=== PATIENT | female | born 1940 | race Caucasian/White ===

== ENCOUNTER 2021-02-28 23:13 | Inpatient (IN) | payer OTHER ==
[~2021-02-28] VITALS: Ht 160 cm; Wt 49.9 kg
--- NOTE | ~2021-02-28 | EMS ---
[address] [address] EMS Patient Care Report Name: MARIE DAVILA Room #: 210-P ADM IN M.R.#: [id number] Admission: 03/01/21 Attend Phys: Bryson Zepeda MD Discharge: Date of : 36 Report #: [id number] THIS REPORT FOR: //name// Report Transmitted: 03/02/2021 16:15 EMS Care Summary [place], [place]/[facility] Incident [id number] @ 02/28/2021 22:18 Incident Location [address] [place] [address] Patient MARIE TAN Female, 81 Years 1940 Patient Address [address] [place], [place] [id number] Patient History None Reported, Patient Allergies Sulfa, Patient Medications None Reported, Chief Complaint NAUSEA Disposition Transported No Lights/[place] Dispatch Reason Sick Person Transported To [facility] Narrative M528 ARRIVES TO FIND 81 Y/O F PT COMPLAINING OF NAUSEA, VOMITING, AND ABDOMINAL PAIN WHICH BEGAN SUDDENLY AROUND 9PM. [address] [address] EMS Patient Care Report Name: MARIE DAVILA Room #: 210-P [facility] IN Evelyn#: [id number] Admission: 03/01/21 Attend Phys: Bryson Zepeda MD Discharge: Date of : 36 Report #: [id number] ASSESSMENTS AND TREATMENTS NOTED. PT MOVES TO COT VIA [id number]. PT MOVED TO AMBULANCE. PT TRANSPORTED. M528 ARRIVES AT DESTINATION. PT MOVED TO ROOM IN ED. PT MOVED TO BED IN ROOM VIA DRAWSHEET METHOD. PT CARE TRANSFERRED. M528 RETURNS TO SERVICE. Initial Vitals @22:36P: 82,BP: 142/84, @22:51P: 79,R: 18,BP: 140/81,Pain: 5/10,GCS: 15,Glucose: 125,CO: 2,SpO2: 98,Revised Trauma: 12, Assessments @22:36MENTAL:Event Oriented,Time Oriented,Place Oriented,Person Oriented,SKIN:HEENT:LUNG SOUNDS:Right Upper: Tenderness,Left Upper: Tenderness,Left Lower: Tenderness,Right Lower: Tenderness,General: Nausea,ABDOMEN:Right Upper: Tenderness,Left Upper: Tenderness,Left Lower: Tenderness,Right Lower: Tenderness,General: Nausea,PELVIS//GI:EXTREMITIES:PULSE:NEURO:@23:06MENTAL:No Abnormalities,SKIN:No Abnormalities,HEENT:Head/Face: No Abnormalities,Eyes: No Abnormalities,Neck/Airway: No Abnormalities,LUNG SOUNDS:Right Lower: Tenderness,Left Lower: Tenderness,Right Upper: Tenderness,Left Upper: Tenderness,General: Nausea,ABDOMEN:Right Lower: Tenderness,Left Lower: Tenderness,Right Upper: Tenderness,Left Upper: Tenderness,General: Nausea,PELVIS//GI:No Abnormalities,EXTREMITIES:Left Arm: No Abnormalities,Right Arm: No Abnormalities,Left Leg: No Abnormalities,Right Leg: No Abnormalities,PULSE:NEURO:No Abnormalities, Impression Nausea Procedures @22:36ALS AssessmentResponse: UnchangedSucceeded@22:51Saline Lock 0cc (20 ga) Site: Forearm-LeftResponse: UnchangedSucceeded@22:373-Lead ECGResponse: UnchangedSucceeded@22:50Saline Lock 0cc (20 ga) Site: Antecubital-LeftResponse: UnchangedFailed Timeline 22:16,Call Received 22:16,Dispatch Notified 22:18,Dispatched 22:19,En Route 22:32,On Scene 22:35,At Patient 22:36,ALS Assessment,Response: UnchangedSucceeded, 22:36,BP: 142/84 M,PULSE: 82,RR: R,SPO2: Ox,ETCO2: ,BG: ,PAIN: ,GCS: , 22:37,3-Lead ECG,Response: UnchangedSucceeded, 22:50,Saline Lock 0cc 20 ga Site: Antecubital-Left,Response: UnchangedFailed, [address] [address] EMS Patient Care Report Name: MARIE DAVILA Room #: 210-P [facility] IN .R.#: [id number] Admission: 03/01/21 Attend Phys: Bryson Zepeda MD Discharge: Date of : 36 Report #: [id number] 22:51,Saline Lock 0cc 20 ga Site: Forearm-Left,Response: UnchangedSucceeded, 22:51,BP: 140/81 M,PULSE: 79,RR: 18 R,SPO2: 98 Ox,ETCO2: ,B,PAIN: 5,GCS: 15, 22:59,Depart Scene 23:09,At Destination 23:23,Call Closed Disclaimer v1.1 Copyright 2020 [employer] This EMS Care Summary contains data elements from the applicable legal record (which may be displayed differently). It is designed to provide pertinent information for the following purposes: continuity of care, clinical quality, and state data reporting. The complete legal record is available to ED staff and administrators of the receiving hospital in [employer] Patient Tracker. All data is provided "as is."
--- NOTE | ~2021-02-28 | EMS ---
[address] [address] EMS Patient Care Report Name: MARIE JACKSON Room #: REG MATT [place]#: [id number] Admission: 02/28/21 Attend Phys: Discharge: Date of : 36 Report #: [id number] THIS REPORT FOR: //name// Report Transmitted: 02/28/2021 23:11 EMS Care Summary [place], [place]/[facility] Incident [id number] @ 02/28/2021 22:18 Incident Location [address] [place], [place] [phone] Patient MARIE TAN Female, 81 Years 1940 Patient Address [address] [place], [place] [phone] Patient History None Reported, Patient Allergies Sulfa, Patient Medications None Reported, Chief Complaint NAUSEA Disposition Transported No Lights/[place] Dispatch Reason Sick Person Transported To [facility] Narrative M528 ARRIVES TO FIND 81 Y/O F PT COMPLAINING OF NAUSEA, VOMITING, AND ABDOMINAL PAIN WHICH BEGAN SUDDENLY AROUND 9PM. [address] [address] EMS Patient Care Report Name: MARIE JACKSON Room #: REG [place]#: [id number] Admission: 02/28/21 Attend Phys: Discharge: Date of : 36 Report #: [id number] ASSESSMENTS AND TREATMENTS NOTED. PT MOVES TO COT VIA [id number]. PT MOVED TO AMBULANCE. PT TRANSPORTED. M528 ARRIVES AT DESTINATION. PT MOVED TO ROOM IN ED. PT MOVED TO BED IN ROOM VIA DRAWSHEET METHOD. PT CARE TRANSFERRED. M528 RETURNS TO SERVICE. Initial Vitals @22:36P: 82,BP: 142/84, @22:51P: 79,R: 18,BP: 140/81,Pain: 5/10,GCS: 15,Glucose: 125,CO: 2,SpO2: 98,Revised Trauma: 12, Assessments @22:36MENTAL:Person Oriented,Place Oriented,Time Oriented,Event Oriented,SKIN:HEENT:LUNG SOUNDS:General: Nausea,Right Lower: Tenderness,Left Lower: Tenderness,Right Upper: Tenderness,Left Upper: Tenderness,ABDOMEN:General: Nausea,Right Lower: Tenderness,Left Lower: Tenderness,Right Upper: Tenderness,Left Upper: Tenderness,PELVIS//GI:EXTREMITIES:PULSE:NEURO:@23:06MENTAL:No Abnormalities,SKIN:No Abnormalities,HEENT:Head/Face: No Abnormalities,Eyes: No Abnormalities,Neck/Airway: No Abnormalities,LUNG SOUNDS:General: Nausea,Left Upper: Tenderness,Right Upper: Tenderness,Left Lower: Tenderness,Right Lower: Tenderness,ABDOMEN:General: Nausea,Left Upper: Tenderness,Right Upper: Tenderness,Left Lower: Tenderness,Right Lower: Tenderness,PELVIS//GI:No Abnormalities,EXTREMITIES:Left Arm: No Abnormalities,Right Arm: No Abnormalities,Left Leg: No Abnormalities,Right Leg: No Abnormalities,PULSE:NEURO:No Abnormalities, Impression Nausea Procedures @22:36ALS AssessmentResponse: UnchangedSucceeded@22:51Saline Lock 0cc (20 ga) Site: Forearm-LeftResponse: UnchangedSucceeded@22:373-Lead ECGResponse: UnchangedSucceeded@22:50Saline Lock 0cc (20 ga) Site: Antecubital-LeftResponse: UnchangedFailed Timeline 22:16,Call Received 22:16,Dispatch Notified 22:18,Dispatched 22:19,En Route 22:32,On Scene 22:35,At Patient 22:36,ALS Assessment,Response: UnchangedSucceeded, 22:36,BP: 142/84 M,PULSE: 82,RR: R,SPO2: Ox,ETCO2: ,BG: ,PAIN: ,GCS: , 22:37,3-Lead ECG,Response: UnchangedSucceeded, 22:50,Saline Lock 0cc 20 ga Site: Antecubital-Left,Response: UnchangedFailed, [address] [address] EMS Patient Care Report Name: RYLEYLizeth DAVILAMARIE Room #: REG [place].#: [id number] Admission: 02/28/21 Attend Phys: Discharge: Date of : 36 Report #: [id number] 22:51,Saline Lock 0cc 20 ga Site: Forearm-Left,Response: UnchangedSucceeded, 22:51,BP: 140/81 M,PULSE: 79,RR: 18 R,SPO2: 98 Ox,ETCO2: ,B,PAIN: 5,GCS: 15, 22:59,Depart Scene 23:09,At Destination 23:23,Call Closed Disclaimer v1.1 Copyright 2020 [employer] This EMS Care Summary contains data elements from the applicable legal record (which may be displayed differently). It is designed to provide pertinent information for the following purposes: continuity of care, clinical quality, and state data reporting. The complete legal record is available to ED staff and administrators of the receiving hospital in [employer] Patient Tracker. All data is provided "as is."
[2021-02-28 23:14] VITALS: BP 171/78
[2021-02-28 23:47] LABS: ABSOLUTE NEUTROPHILS 16.2 thou/uL (1.4-8.2); BASOPHILS 0.3 % (0.0-2.0); EOSINOPHILS 0.5 % (0.0-3.0); HEMATOCRIT 37.3 % (37.0-47.0); HEMOGLOBIN 12.9 gm/dL (12.0-15.0); LYMPHOCYTES 2.5 % (24.0-44.0); MCH 31.7 pg (26.0-34.0); MCHC 34.5 g/dL (28.0-37.0); MCV 91.9 fL (80.0-100.0); MONOCYTES 4.5 % (1.0-8.0); PLATELET COUNT 358 thou/uL (150-400); POLYS 92.2 % (36.0-66.0); RBC 4.05 mil/uL (4.20-5.00); RDW 13.5 % (10.5-14.5); WBC 17.5 thou/uL (4.0-11.0)
[2021-03-01] LABS: ALBUMIN 1.6 g/dL (3.4-5.0); ANION GAP 11 mmol/L (7-16); BUN 8 mg/dL (7-18); CHLORIDE 117 mmol/L (98-107); CO2 16 mmol/L (21-32); CREATININE 0.1 mg/dL (0.6-1.0); GLUCOSE 75 mg/dL (74-106); LIPASE 41 U/L (73-393); SGOT 13 U/L (15-37); SGPT 9 U/L (30-65); SODIUM 144 mmol/L (136-145); TOTAL BILIRUBIN 0.2 mg/dL (0.2-1.0); TOTAL PROTEIN 3.3 g/dL (6.4-8.2)
[2021-03-01 00:02] LABS: POTASSIUM 2.3 mmol/L (3.5-5.1)
[2021-03-01 00:03] LABS: CALCIUM < 5.0 mg/dL (8.5-10.1)
[2021-03-01 01:33] LABS: URINE BILIRUBIN NEGATIVE (Negative); URINE BLOOD NEGATIVE (Negative); URINE CLARITY CLEAR; URINE COLOR YELLOW; URINE GLUCOSE-RANDOM* NEGATIVE (Negative); URINE KETONES NEGATIVE (Negative); URINE NITRITE-REFLEX NEGATIVE (Negative); URINE PROTEIN (DIPSTICK) NEGATIVE (Negative); URINE SPECIFIC GRAVITY 1.015 (1.005-1.035); URINE UROBILINOGEN 0.2 E.U./dl (0.2-1.0)
[2021-03-01 01:43] LABS: URINE LEUKOCYTES-REFLEX 1+ (Negative)
[2021-03-01 01:47] LABS: BACTERIA-REFLEX 1-9 Few /HPF (None Seen); CASTS None Seen /LPF (None Seen); CRYSTALS None Seen /LPF (None Seen); MUCUS 0-3 Light strn/LPF (None Seen); SQUAMOUS 0-3 Few /LPF (0-3); URINE RBC 1-2 Rare /HPF (NONE SEEN); URINE WBC-REFLEX 0-5 Rare /HPF (0-5)
--- NOTE | 2021-03-01 02:19 | NUR ---
Attempted to give report but was told RN busy giving meds and will call back
[2021-03-01 02:36] VITALS: BP 158/81
[2021-03-01 03:46] VITALS: BP 159/92
--- NOTE | 2021-03-01 06:27 | NUR ---
ASSUME CARE [address] ED STAFF. PT STABLE. DENIES ANY PAIN. MODERATE ACTIVITY TOLERANCE. HX OF RIGHT HIP REPLACEMENT X 6WEEKS. PT CONSULTED FOR EVAL AND TX. ASSESSMENT CHARTED. NOTED NAUSEA AND VOMITING. ZOFRAN FOR RELIEF. NO DISTRESS NOTED THROUGH OUT. SR ON MONITOR. PROGRESSING WELL WITH POC. PLAN IS TO CONTINUE TO MONITOR AND REPLACE ELECTROLYTES, MANAGE NAUSEA, VOITING AND DIARRHEA. WILL CONTINUE TO MONITOR AND FOLLOW WITH POC
[2021-03-01 07:09] VITALS: BP 147/75
[2021-03-01 08:33] LABS: MAGNESIUM 1.9 mg/dL (1.8-2.4)
[2021-03-01 08:35] LABS: CALCIUM 8.8 mg/dL (8.5-10.1); POTASSIUM 3.7 mmol/L (3.5-5.1)
[2021-03-01 11:06] VITALS: BP 126/62
[2021-03-01 15:55] VITALS: BP 133/59
--- NOTE | 2021-03-01 16:55 | NUR ---
ASSESSMENT CHARTED - MEDS PER AUG - PT WITH IV FLUIDS CONTINUING. PT LAB THIS AM - K+ 3.7 CA 8.8 MAG 1.9. IV ANTIBIOTICS GIVEN ORDERED. NO CO'S OF PAIN - PT WITH CO'S OF NAUSEA. DESIRAE ONLY VERY MINIMAL AMOUNT OF FLUIDS. PT WITH PURE WICK INSITU - INCONTINENT OF URINE AND STOOL THIS SHIFT - SPECIMEN TO THE LAB. PT HAS BEEN RESTING IN BED WITH EYES CLOSED - SEEN BY PHYS THERAPY THIS AFTERNOON. PT WITH NO CO'S AT THE PRESENT TIME.
--- NOTE | 2021-03-01 17:33 | NUR ---
Met with patient who admits with vomiting. Patient resides in independent living at [facility]. All needs on one level and no steps to enter. She had recent hip sx 01/12/21. She rec skilled rehab care at [facility]. She reports she has HH but cannot recall agency. She reports her dtr might know HH agency. She has a wc in home. She reports her weight bearing status recently to 100%. Therapy evals in process. [facility] following for dc planning.
[2021-03-01 20:10] VITALS: BP 140/64
[2021-03-02 03:42] VITALS: BP 147/62
[2021-03-02 05:59] LABS: HEMATOCRIT 33.1 % (37.0-47.0); HEMOGLOBIN 11.9 gm/dL (12.0-15.0); MCH 32.9 pg (26.0-34.0); MCHC 35.8 g/dL (28.0-37.0); MCV 91.8 fL (80.0-100.0); RBC 3.6 mil/uL (4.20-5.00); RDW 13.3 % (10.5-14.5); WBC 5.4 thou/uL (4.0-11.0)
[2021-03-02 06:25] LABS: CALCIUM 7.9 mg/dL (8.5-10.1); CREATININE 0.6 mg/dL (0.6-1.0)
[2021-03-02 06:36] LABS: POTASSIUM 2.8 mmol/L (3.5-5.1)
--- NOTE | 2021-03-02 07:38 | NUR ---
ASSESSMENT CHARTED, NEW IV PLACED IN RIGHT FOREARM, DUE TO D/C OF IV IN LEFT A/C DUE TO INFILTRATION. NO VOMITING TOLERATING CLEAR LIQUIDS. ABLE TO REPOSITION SELF IN BED. SCD'S REAPPLIED AFTER A 4 HOUR BREAK, WHERE SHE WAS ABLE TO SLEEP. CONTUNUE POC.
[2021-03-02 08:00] VITALS: BP 125/61
[2021-03-02 15:53] VITALS: BP 125/67
--- NOTE | 2021-03-02 19:30 | NUR ---
ASSESSMENT CHARTED - MEDS PER MAR - DESIRAE SMALL AMOUNTS OF CLEAR LIQUID DAIT - ATTEMPTED TO INCREASE DIET TO FULL LIQUID BUT KITCHEN DOES NOT HAVE ANYTHING THAT IS LACTOSE AND GLUTEN FREEE ON A FULL LIQUID DIET. PT UP TO THE BSC. GIVEN ZOFRAN THIS AFTERNOON FOR CO'S OF NASUEA WITH GOOD RELIEF. DAUSHTER INTO VISIT THIS EVENING - C DIF TO THE LAB - COVID PCR NEGATIVE.
[2021-03-02 19:46] VITALS: BP 139/67
[2021-03-03 06:19] LABS: POTASSIUM 2.8 mmol/L (3.5-5.1)
[2021-03-03 07:00] VITALS: BP 133/64
--- NOTE | 2021-03-03 07:48 | NUR ---
PATIENT CONTINUES CLEAR LIQUID DIET R/T NAUSEA. SIPS PO, IV FLUIDS CONTINUE. HAS REFUSED OFFERS FOR ANTIEMETICS. AT 5AM REQUESTED SOMETHING, AND ZOFRAN WAS GIVEN IVP. TRANSFERS TO [facility]. SCDS ON BLE. CONTINUE POC.
[2021-03-03 09:08] LABS: ABSOLUTE NEUTROPHILS 5.1 thou/uL (1.4-8.2); BASOPHILS 0.2 % (0.0-2.0); EOSINOPHILS 8.7 % (0.0-3.0); HEMATOCRIT 32.9 % (37.0-47.0); HEMOGLOBIN 11.2 gm/dL (12.0-15.0); MCH 31.4 pg (26.0-34.0); MCHC 34.1 g/dL (28.0-37.0); MCV 92.3 fL (80.0-100.0); PLATELET COUNT 264 thou/uL (150-400); POLYS 81.1 % (36.0-66.0); RBC 3.56 mil/uL (4.20-5.00); RDW 13.6 % (10.5-14.5); WBC 6.3 thou/uL (4.0-11.0)
[2021-03-03 09:12] LABS: CALCIUM 7.5 mg/dL (8.5-10.1); CREATININE 0.5 mg/dL (0.6-1.0)
--- NOTE | 2021-03-03 11:38 | NUR ---
Pt's covid pcr test yesterday was negative. Message left for her dtr [place] to see if she knows which agency is providing her HH services. DC time frame is uncertain. PT/OT continuing to work with the pt. All parties hopeful the pt can [place].
--- NOTE | 2021-03-03 12:09 | NUR ---
RD consult received. Admit with n/v/d. Advanced age, no pertinent medical hx other than recent hip fracture. Tolerated small amount of cream rice this am, and now diet advanced for lunch. 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 Wt down 5 lb, but likely was dehydrated. K+ requiring replacement. Vitamin D level pending. Pt refuses all oral supplement drinks. Low nutrition risk.
[2021-03-03 15:00] VITALS: BP 147/66
[2021-03-03 16:11] VITALS: BP 147/66
--- NOTE | 2021-03-03 17:40 | NUR ---
PT INITIAL POTASSIUM THIS AM WAS 2.8 , RECEIVED 2 - 20 MEQ IV REPLACEMENT. POATASSIUM RECHECKED IT CAME UP TO 3.0. CURRENTLY RECEIVING AN ADDITIONAL 2 - 20 MEQ REPLACEMENT WILL NEED TO BE RECHECKED AFTER INFUSION. PATIENT SEEN PT AND OT TODAY BOTH STATED PT IS ABLE TO WALK WITH STANDBY ASSIST. PT STATES SHE CAN ONLY STAND AND PIVOT TO A WHEEL CHAIR AND NEEDS PUSHED TO THE RESTROOM. REMOVED FIELD IV AND STARTED A REPLACEMENT IV IN THE RIGHT AC. PT'S DAUGHTER STAYED MOST OF THE SHIFT.
[2021-03-03 19:38] VITALS: BP 138/62
[2021-03-04 03:26] VITALS: BP 141/67
[2021-03-04 04:14] LABS: CALCIUM 7.6 mg/dL (8.5-10.1); CREATININE 0.6 mg/dL (0.6-1.0)
[2021-03-04 04:36] LABS: HEMATOCRIT 32.2 % (37.0-47.0); HEMOGLOBIN 11.2 gm/dL (12.0-15.0); MCH 31.5 pg (26.0-34.0); MCHC 34.9 g/dL (28.0-37.0); MCV 90.2 fL (80.0-100.0); RBC 3.57 mil/uL (4.20-5.00); RDW 13.4 % (10.5-14.5); WBC 4.6 thou/uL (4.0-11.0)
--- NOTE | 2021-03-04 04:54 | NUR ---
RECEIVED PATIENT AT 1900H.PATIENT IS ALERT AND ORIENTED X4.ON ROOM AIR BREATHING SPONTANEOUSLY.NOT IN PAIN OR DISTRESS.FALL PREVENTION MEASURES MAINTAINED.ALL NEEDS ATTENDED
[2021-03-04] MEDS ORDERED: LEVOFLOXACIN500 MG PO (07:51)
[2021-03-04 08:00] VITALS: BP 153/75
[2021-03-04 09:57] VITALS: BP 147/66
--- NOTE | 2021-03-04 10:46 | NUR ---
PT DISCNARGING TODAY TO HER [place] AT [facility] SPOKE WITH FIDEL REES PT IS ON SERVICE WITH [facility] IN [place], [place] THEY COME [place] TO DO [place]AP[place]. PT'S DTR IS SPEAKING WITH THE STAFF AT THE [facility] TO SEE WHO THEY USE FOR NURSING HH. FAXED DC ORDERS/SUMMARY TO THE [facility] SPOKE WITH RODRICK AT THE FACILITY AND SHE IS WORKING WITH THE DTR ON GETTING PT NURSING HH. RECEIVED CONFIRMATION ON BOTH FAXED. FIDEL REES TO TRANSPORT HER MOTHER TO HER [place]. UNIT NOFIFIED.
== END 2021-03-04 10:50 | disposition home health service (06) | DRG 391 ==
LOC: ER 23:13 → 2N 03-01 01:30 → EROBS 03-01 01:30 → 2N 03-01 02:39
PROVIDERS: Emergency Medicine; Nurse Practitioner Family; ADMIT Hospitalist; ATTEND Hospitalist
DX: A09 Infectious gastroenteritis and colitis, unspecified (principal); E43 Unspecified severe protein-calorie malnutrition; N39.0 Urinary tract infection, site not specified; E46 Unspecified protein-calorie malnutrition; Z68.1 Body mass index [BMI] 19.9 or less, adult; E87.8 Other disorders of electrolyte and fluid balance, not elsewhere classified; D72.829 Elevated white blood cell count, unspecified; Z20.822 Contact with and (suspected) exposure to COVID-19; E83.51 Hypocalcemia; E87.6 Hypokalemia; Z96.642 Presence of left artificial hip joint; E77.8 Other disorders of glycoprotein metabolism; I10 Essential (primary) hypertension; R53.81 Other malaise; G89.29 Other chronic pain; R10.9 Unspecified abdominal pain; Z88.2 Allergy status to sulfonamides; Z90.710 Acquired absence of both cervix and uterus; Z28.21 Immunization not carried out because of patient refusal
CPT/HCPCS: 10081